=== PATIENT | male | born 2000 | race Caucasian/White ===

== ENCOUNTER → 2024-09-16 | Outpatient (BNVA) | payer BC, OTHER, SELFPAY | END | disposition home or self-care (01) | PROVIDERS: PCP Physician Assistant; Referring Provider Physician Assistant; Visit Provider Urology | DX: N50.812 Left testicular pain (principal); N43.3 Hydrocele, unspecified | CPT/HCPCS: 81003; 99212; G0463 ==

== ENCOUNTER → 2025-03-25 | Outpatient (CLI) | payer BC, OTHER, SELFPAY ==
--- NOTE | 2025-03-25 13:00 | XR_ITS ---
EXAMINATION: Cervical spine, 5 views Technique: Cervical spine AP, AP odontoid, lateral, bilateral obliques, 5 views Exam date and time: March 25, 2025 1337 hours INDICATIONS: Sudden onset neck pain beginning 2 weeks ago. FINDINGS: Satisfactory alignment cervical vertebral bodies. No significant neural foraminal stenosis There is no diagnostic visualization C7 The odontoid is intact No visualized cervical disc narrowing IMPRESSION: No cervical fracture or significant arthritic change This patient should return for a swimmer's lateral cervical spine view
== END | disposition home or self-care (01) ==
PROVIDERS: PCP Physician Assistant; Referring Provider Student in an Organized Health Care Education/Training Program; Visit Provider Student in an Organized Health Care Education/Training Program
DX: M54.2 Cervicalgia (principal)
CPT/HCPCS: 72050